=== PATIENT | female | born 1965 | race Caucasian/White ===

== ENCOUNTER 2019-10-23 09:17 | Emergency (ER) | payer OTHER, SELFPAY ==
--- NOTE | ~2019-10-23 | XR_ITS ---
EXAMINATION: XR ankle LT min 3V DATE: 10/23/2019 09:47 INDICATION: Left ankle injury. TECHNIQUE: 4 views of left ankle were obtained. COMPARISON: None. FINDINGS: Bone alignment is normal. No fracture. Joint spaces are well maintained. There are enthesop hytes at the posterior and plantar aspects of calcaneal tuberosity. Ankle soft tissue swelling is not ed. IMPRESSION: 1. No fracture. Reviewed, dictated and finalized at location B. IMPRESSION: 1. No fracture.
[2019-10-23 09:30] VITALS: BP 141/59; PULSE 74; RESP 20; TEMP 36.4; O2SAT 97
--- NOTE | 2019-10-23 09:30 | ED.LOWEXIN ---
HPI - Extremity Injury (Lower) General Chief Complaint: Extremity Injury, Lower Stated Complaint: left ankle injury Time Seen by Provider: 10/23/19 09:30 Source: patient and RN notes reviewed History of Present Illness HPI Narrative: Patient is a 54-year-old female who presents the urgent care with complaints of left ankle pain and swelling. Patient states that she fell down her wooden basement stairs this morning approximately 6 AM. Patient states that she is taken a dose of Advil since the fall and the pain has improved. Patient denies of any loss of consciousness. No other acute complaints or injuries. No acute distress noted. Patient read the plan of care. Related Data Home Medications Medication Instructions Recorded Confirmed atenolol 10/23/19 escitalopram oxalate mg 10/23/19 ibuprofen 10/23/19 pravastatin 10/23/19 Allergies Allergy/AdvReac Type Severity Reaction Status Date / Time morphine Allergy Intermediate Rash Verified 10/23/19 09:46 Review of Systems Review of Systems: Narrative: CONSTITUTIONAL: Denies fever, chills, or sweats. EYES: Denies visual changes, redness, or discharge. ENT: Denies rhinorrhea, congestion, sore throat, or otalgia. CARDIOVASCULAR: Denies chest pain, palpitations, or edema. RESPIRATORY: Denies cough or dyspnea. GASTROINTESTINAL: Denies abdominal pain, nausea, vomiting, or diarrhea. GENITOURINARY: Denies dysuria or hematuria. SKIN: Denies rash or itching. MUSCULOSKELETAL: Reports of left ankle pain and swelling due to fall NEUROLOGIC: Denies headache, numbness, or weakness. All other systems reviewed are negative, except as documented in HPI. PMFSH Comments At the time of my signature, I reviewed and agree with the nursing past medical, surgical, social, and family history. There is no relevant family history pertinent to the patient complaint. Exam Narrative: Exam Narrative: GENERAL: This is a well-nourished, well-developed patient, in no apparent distress. HEAD: normocephalic, atraumatic. EYES: PERRL. Sclera clear/white. Vision is grossly intact. EARS: External ears normal NOSE: External nose normal with no obvious nasal discharge, nares without redness, no rhinorrhea. THROAT: Mucous membranes moist NECK: Neck supple SKIN: warm, intact with no suspicious lesions or rash, good texture and turgor. NEURO: awake, alert, and oriented to person, place and time. There were no obvious focal neurologic abnormalities. EXTREMITIES: Moderate edema noted to anterior lateral left malleolus with moderate tenderness. Mild ecchymosis noted to left lower extremity. Positive strong left pedal pulse with capillary refill less than 2 seconds. Range of motion not tested due to obvious swelling and pain Course Vital Signs Vital signs: Vital Signs Temperature 97.6 F 10/23/19 09:30 Pulse Rate 74 10/23/19 09:30 Respiratory Rate 20 10/23/19 09:30 Blood Pressure 141/59 H 10/23/19 09:30 Pulse Oximetry 97 10/23/19 09:30 Temperature 97.6 F 10/23/19 09:30 Pulse Rate 74 10/23/19 09:30 Respiratory Rate 20 10/23/19 09:30 Blood Pressure 141/59 H 10/23/19 09:30 Pulse Oximetry 97 10/23/19 09:30 Reviewed-hypertension MDM - Extremity Injury (Lower) MDM Narrative Medical decision making narrative: Reviewed x-ray results with the patient. She is aware the x-ray was negative for fracture. Advised the patient to use the Lewis wrap as directed for comfort and swelling. Keep the lower extremity elevated and use ice as much as possible. Use Tylenol/ibuprofen as needed for pain. Limit weightbearing activity for the next couple days until activity as tolerated as normal. May use crutches or scooter if necessary. Swelling typically takes approximately 3 to 4 days to improve and pain will be present likely for 1 week. If swelling and pain does not subside in a timely manner, you may follow-up with the orthopedic as referred. Follow-up with your PCP within 2 to 5 days or for
== END 2019-10-23 10:07 | disposition home or self-care (01) ==
PROVIDERS: Emergency Provider Nurse Practitioner Family
DX: S93.402A Sprain of unspecified ligament of left ankle, initial encounter (principal); S96.912A Strain of unspecified muscle and tendon at ankle and foot level, left foot, initial encounter; W10.9XXA Fall (on) (from) unspecified stairs and steps, initial encounter; E78.00 Pure hypercholesterolemia, unspecified; I10 Essential (primary) hypertension
CPT/HCPCS: 73610; 99213; G0463

== ENCOUNTER 2021-01-03 18:51 | Emergency (ER) | payer OTHER, SELFPAY ==
--- NOTE | 2021-01-03 18:53 | ED.URI ---
HPI - URI/Sore Throat General Chief Complaint: Upper Respiratory Infection Stated Complaint: Cough Time Seen by Provider: 01/03/21 18:53 Source: patient and RN notes reviewed History of Present Illness HPI Narrative: Patient is a 55-year-old female who presents the urgent care with complaints of persistent cough for the last month as well as runny nose and postnasal drainage. Patient denies of any fever, nausea, vomiting. States that she has had the Covid vaccine. Denies of any known exposure to Covid. Patient states that she gets these symptoms every fall . Patient has been taking her daily Zyrtec and using her asthma medications as directed. No other acute complaints. No acute distress noted. Patient read the plan of care. Some parts of this dictation were generated by voice recognition software and may contain typographical and/or grammatical inaccuracies. Related Data Home Medications Medication Instructions Recorded Confirmed albuterol sulfate 2 puff INHALATION QID PRN 01/03/21 01/03/21 albuterol sulfate 2.5 mg INHALATION Q4H PRN 01/03/21 01/03/21 atenolol 25 mg PO DAILY 01/03/21 01/03/21 cetirizine 10 mg PO DAILY 01/03/21 01/03/21 escitalopram oxalate 10 mg PO DAILY 01/03/21 01/03/21 fluticasone furoate-vilanterol 1 inh INHALATION DAILY 01/03/21 01/03/21 [Breo Ellipta] pravastatin 40 mg PO DAILY 01/03/21 01/03/21 Allergies Allergy/AdvReac Type Severity Reaction Status Date / Time morphine Allergy Intermediate Itching Verified 01/03/21 19:12 Review of Systems Review of Systems: CONSTITUTIONAL: Denies fever, chills, or sweats. EYES: Denies visual changes, redness, or discharge. ENT: Denies congestion, sore throat, or otalgia. Reports a persistent yellow to green drainage CARDIOVASCULAR: Denies chest pain, palpitations, or edema. RESPIRATORY: Reports a persistent cough without dyspnea or wheezing GASTROINTESTINAL: Denies abdominal pain, nausea, vomiting, or diarrhea. GENITOURINARY: Denies dysuria or hematuria. SKIN: Denies rash or itching. MUSCULOSKELETAL: Denies back pain, joint pain, or myalgia. NEUROLOGIC: Denies headache, numbness, or weakness. All other systems reviewed are negative, except as documented in HPI. PMFSH Comments At the time of my signature, I reviewed and agree with the nursing past medical, surgical, social, and family history. There is no relevant family history pertinent to the patient complaint. Exam Narrative: GENERAL: This is a well-nourished, well-developed patient, in no apparent distress. HEAD: normocephalic, atraumatic. EYES: PERRL. Sclera clear/white. Vision is grossly intact. EARS: External ears normal, auditory canals clear and without drainage, TMs normal without perforation. Hearing grossly intact. NOSE: External nose normal with no obvious nasal discharge, mild erythemic nares with clear rhinorrhea THROAT: Mucous membranes moist, posterior pharynx clear. Moderate postnasal drainage NECK: Neck supple, non-tender without lymphadenopathy, masses or thyromegaly. CARDIOVASCULAR: Regular rate and rhythm without murmurs, gallops, or rubs. RESPIRATORY: Persistent nonproductive cough on exam. Clear to auscultation. Breath sounds equal bilaterally. No wheezes, rales, or rhonchi. SKIN: warm, intact with no suspicious lesions or rash, good texture and turgor. NEURO: awake, alert, and oriented to person, place and time. There were no obvious focal neurologic abnormalities. EXTREMITIES: No clubbing, cyanosis, or edema. Course Vital Signs Vital signs: Vital Signs Temperature 98.8 F 01/03/21 18:55 Pulse Rate 100 01/03/21 18:55 Respiratory Rate 20 01/03/21 18:55 Blood Pressure 152/70 H 01/03/21 18:55 Pulse Oximetry 99 01/03/21 18:55 Temperature 98.8 F 01/03/21 18:55 Pulse Rate 100 01/03/21 18:55 Respiratory Rate 20 01/03/21 18:55 Blood Pressure 152/70 H 01/03/21 18:55 Pulse Oximetry 99 01/03/21 18:55 Reviewed-patient is informed that they may h
[2021-01-03 18:55] VITALS: BP 152/70; PULSE 100; RESP 20; TEMP 37.1; O2SAT 99
== END 2021-01-03 19:12 | disposition home or self-care (01) ==
PROVIDERS: Emergency Provider Nurse Practitioner Family; PCP Family Medicine
DX: J40 Bronchitis, not specified as acute or chronic (principal); J32.9 Chronic sinusitis, unspecified; E78.00 Pure hypercholesterolemia, unspecified; J45.909 Unspecified asthma, uncomplicated; F41.9 Anxiety disorder, unspecified; F32.A Depression, unspecified
CPT/HCPCS: 99213; G0463